=== PATIENT | female | born 1985 | race Caucasian/White ===

== ENCOUNTER 2018-01-23 18:33 | Emergency (ER) | payer BC ==
[2018-01-23 19:15] VITALS: BP 158/62
[2018-01-23] MEDS: Cyclobenzaprine TAB* 10 MG PO ONE (19:49)
--- NOTE | 2018-01-23 19:50 | UC ---
Back Pain HPI - HPI Summary HPI Summary: 32 yo female with right low back pain radiating to right calf x 2 days hx sciatica taking motrin recent steroid shot right knee DM - History of Current Complaint Chief Complaint: UCBackPain Stated Complaint: BACK AND RIGHT LEG PAIN Time Seen by Provider: 01/23/18 19:35 Hx Obtained From: Patient Onset/Duration: Gradual Onset, Lasting Days Timing: Constant Severity Initially: Moderate Severity Currently: Moderate Pain Intensity: 6 Pain Scale Used: 0-10 Numeric Back Pain: Is Discrete @ - right lower back, Radiates To - right calf Character: Aching, Throbbing, Spasmodic Aggravating Factor(s): Movement, Lifting, Bending Alleviating Factor(s): Position Related History: Similar Episode Dx As - sciatica - Allergies/Home Medications Allergies/Adverse Reactions: Allergies Allergy/AdvReac Type Severity Reaction Status Date / Time No Known Allergies Allergy Verified 01/23/18 19:15 Home Medications: Home Medications Aspirin Low Dose CHEW TAB* [Aspirin Low Dose TAB*] 01/23/18 [History] Atorvastatin* [Lipitor 20 MG*] 01/23/18 [History] Lisinopril/HCTZ 10/12.5(NF) [Zestoretic 10/12.5(NF)] 01/23/18 [History] Omeprazole CAP* [Prilosec CAP* 20 MG] 01/23/18 [History] metFORMIN* [Glucophage 1000 MG TAB *] 01/23/18 [History] PMH/Surg Hx/FS Hx/Imm Hx Previously Healthy: Yes Endocrine History: Diabetes Cardiovascular History: Hypertension - Surgical History Surgical History: Yes Surgery Procedure, Year, and Place: hysterectomy, tubaligation, tubes in ears, tonsillectomy - Family History Known Family History: Positive: Hypertension, Diabetes - Social History Alcohol Use: Rare Substance Use Type: None Smoking Status (MU): Light Every Day Tobacco Smoker Review of Systems Constitutional: Negative Skin: Negative Eyes: Negative ENT: Negative Respiratory: Negative Cardiovascular: Negative Gastrointestinal: Negative Genitourinary: Negative Motor: Negative Neurovascular: Negative Musculoskeletal: Myalgia Neurological: Negative Psychological: Negative Is Patient Immunocompromised?: No All Other Systems Reviewed And Are Negative: Yes Physical Exam Triage Information Reviewed: Yes Appearance: Well-Appearing, No Pain Distress, Well-Nourished Vital Signs: Initial Vital Signs Temp 97.4 F 01/23/18 19:10 Pulse 88 01/23/18 19:10 Resp 18 01/23/18 19:10 BP 158/62 01/23/18 19:10 Pulse Ox 99 01/23/18 19:10 Vital Signs Reviewed: Yes Eyes: Positive: Conjunctiva Clear ENT: Positive: Hearing grossly normal, Uvula midline. Negative: Nasal congestion, Nasal drainage, Trismus, Muffled voice, Hoarse voice Neck: Positive: Supple, Nontender Respiratory: Positive: Lungs clear, Normal breath sounds, No respiratory distress, No accessory muscle use Cardiovascular: Positive: RRR, No Murmur Musculoskeletal: Positive: ROM Intact, No Edema Neurological: Positive: Alert Psychological Exam: Normal Skin Exam: Normal Back Pain Course/Dx - Differential Dx/Diagnosis Provider Diagnoses: acute sciatica Discharge - Discharge Plan Condition: Stable Disposition: HOME Prescriptions: Cyclobenzaprine TAB* [Flexeril TAB*] 10 mg PO TID PRN #21 tab PRN Reason: Spasms Patient Education Materials: Sciatica (ED) Forms: *Work Release Referrals: DEEPTHI Bear [Primary Care Provider] - 5 Days (recheck in 5-10 days) Additional Instructions: don't take muscle relaxer and drive or work Images Front/Back of Body, Lg ([place]): 1 - pain here, (+) SLR 2 - radiates here
== END 2018-01-23 19:51 | disposition home or self-care (01) ==
LOC: UCCORT 18:33
DX: M54.30 Sciatica, unspecified side (principal); E11.9 Type 2 diabetes mellitus without complications; Z79.84 Long term (current) use of oral hypoglycemic drugs; I10 Essential (primary) hypertension; F17.210 Nicotine dependence, cigarettes, uncomplicated
CPT/HCPCS: 99212; A9270-GY; G0463

== ENCOUNTER 2018-03-27 16:11 | Emergency (ER) | payer BC ==
[2018-03-27 17:11] VITALS: BP 146/93
--- NOTE | 2018-03-27 17:17 | ED ---
Throat Pain/Nasal Congestion - HPI Summary HPI Summary: 32 yrold female with the complaint of sinus pressure, post nasal drip, bilateral ear pressure. Onset about a week ago, and she feels she has a sinus infection - History of Current Complaint Chief Complaint: UCGeneralIllness Time Seen by Provider: 03/27/18 17:07 - Allergies/Home Medications Allergies/Adverse Reactions: Allergies Allergy/AdvReac Type Severity Reaction Status Date / Time No Known Allergies Allergy Verified 03/27/18 17:08 PMH/Surg Hx/FS Hx/Imm Hx Endocrine/Hematology History: Reports: Hx Diabetes - type 2 Cardiovascular History: Reports: Hx Hypertension - Surgical History Surgery Procedure, Year, and Place: hysterectomy, tubaligation, tubes in ears, tonsillectomy Infectious Disease History: No Infectious Disease History: Denies: Traveled Outside the [place] in Last 30 Days - Family History Known Family History: Positive: Hypertension, Diabetes - Social History Alcohol Use: Rare Substance Use Type: Reports: None Smoking Status (MU): Light Every Day Tobacco Smoker Type: Cigarettes Review of Systems Constitutional: Negative Positive: Ear Ache, Nasal Discharge, Other - sinus pressure All Other Systems Reviewed And Are Negative: Yes Physical Exam Triage Information Reviewed: Yes Vital Signs On Initial Exam: Initial Vitals Temp Pulse Resp BP Pulse Ox 98.4 F 75 20 146/93 98 03/27/18 17:02 03/27/18 17:02 03/27/18 17:02 03/27/18 17:02 03/27/18 17:02 Vital Signs Reviewed: Yes Appearance: Positive: Well-Appearing, No Pain Distress Skin: Positive: Warm, Skin Color Reflects Adequate Perfusion Head/Face: Positive: Normal Head/Face Inspection Eyes: Positive: EOMI ENT: Positive: Pharynx normal, TMs normal, Sinus tenderness Neck: Positive: Nontender Respiratory/Lung Sounds: Positive: Clear to Auscultation, Breath Sounds Present Cardiovascular: Positive: RRR. Negative: Murmur Abdomen Description: Positive: Nontender Musculoskeletal: Positive: Strength/ROM Intact Neurological: Positive: Sensory/Motor Intact, Alert, Oriented to Person Place, Time, CN Intact II-III Psychiatric: Positive: Normal - Tawana Coma Scale Best Eye Response: 4 - Spontaneous Best Motor Response: 6 - Obeys Commands Best Verbal Response: 5 - Oriented Coma Scale Total: 15 Diagnostics - Vital Signs Vital Signs Temp Pulse Resp BP Pulse Ox 03/27/18 17:02 98.4 F 75 20 146/93 98 - Laboratory Lab Statement: Any lab studies that have been ordered have been reviewed, and results considered in the medical decision making process. EENT Course/Dx - Course Course Of Treatment: 32 yr old with sinusitis. Rx Augmentin - Diagnoses Provider Diagnoses: Sinusitis Discharge - Sign-Out/Discharge Documenting (check all that apply): Discharge/Admit/Transfer - Discharge Plan Condition: Good Disposition: HOME Prescriptions: Amoxicillin/Clavulanate TAB* [Augmentin TAB 875*] 875 mg PO BID #20 tab Patient Education Materials: Hypertension (ED), Sinusitis (ED) Referrals: DEEPTHI Bear [Primary Care Provider] - - Billing Disposition and Condition Condition: GOOD Disposition: HOME
== END 2018-03-27 17:38 | disposition home or self-care (01) ==
LOC: UCCORT 16:11
DX: J32.9 Chronic sinusitis, unspecified (principal); F17.210 Nicotine dependence, cigarettes, uncomplicated
CPT/HCPCS: 99212; G0463

== ENCOUNTER 2018-05-21 18:20 | Emergency (ER) | payer BC ==
[2018-05-21 18:35] VITALS: BP 141/74
--- NOTE | 2018-05-21 19:09 | UC ---
UC Dental HPI - HPI Summary HPI Summary: Pt c/o left cheek swelling and tenderness s/p having left upper tooth extraction 2 days ago. - History of Current Complaint Hx Obtained From: Patient Hx Last Menstrual Period: n/a ?: No Onset/Duration: Gradual Onset, Lasting Days Severity: Moderate Pain Intensity: 6 Aggravating Factor(s): Chewing Related History: Previous Dental Care on Same Tooth, Swelling <Phyllis Francois NP - Last Filed: 05/21/18 19:12> <Robinson Skaggs - Last Filed: 05/21/18 20:44> - History of Current Complaint Chief Complaint: UCDentalProblem Stated Complaint: DENTAL COMPLAINT Time Seen by Provider: 05/21/18 18:54 - Allergies/Home Medications Allergies/Adverse Reactions: Allergies Allergy/AdvReac Type Severity Reaction Status Date / Time No Known Allergies Allergy Verified 05/21/18 18:33 Home Medications: Home Medications Ibuprofen TAB* [Motrin TAB* 800 MG] 800 mg PO Q6H 05/21/18 [History Confirmed ] PMH/Surg Hx/FS Hx/Imm Hx Previously Healthy: Yes - Surgical History Surgical History: Yes Surgery Procedure, Year, and Place: hysterectomy, tubaligation, tubes in ears, tonsillectomy - Family History Known Family History: Positive: Hypertension, Diabetes - Social History Occupation: Employed Full-time Lives: With Family Alcohol Use: Rare Substance Use Type: None Smoking Status (MU): Light Every Day Tobacco Smoker Type: Cigarettes Amount Used/How Often: 1/2 ppd Have You Smoked in the Last Year: Yes <Phyllis Francois NP - Last Filed: 05/21/18 19:12> Review of Systems Constitutional: Fever, Chills Skin: Negative Eyes: Negative ENT: Dental Pain Respiratory: Negative Cardiovascular: Negative Gastrointestinal: Negative Genitourinary: Negative Motor: Negative Neurovascular: Negative Musculoskeletal: Negative Neurological: Negative Psychological: Negative Is Patient Immunocompromised?: No All Other Systems Reviewed And Are Negative: Yes <Phyllis Francois NP - Last Filed: 05/21/18 19:12> Physical Exam Triage Information Reviewed: Yes Appearance: Ill-Appearing, Pain Distress Vital Signs: Initial Vital Signs Temp 97.2 F 05/21/18 18:29 Pulse 75 05/21/18 18:29 Resp 18 05/21/18 18:29 BP 141/74 05/21/18 18:29 Pulse Ox 100 05/21/18 18:29 Vital Signs Reviewed: Yes Eye Exam: Normal Dental: Positive: Abscess @ - left upper gum. left cheek swelling, left upper tooth extraction clot intact, Neck exam: Normal Respiratory Exam: Normal Respiratory: Positive: No respiratory distress Musculoskeletal Exam: Normal Neurological Exam: Normal Psychological Exam: Normal Skin Exam: Normal <Phyllis Francois NP - Last Filed: 05/21/18 19:12> Vital Signs: Initial Vital Signs Temp 97.2 F 05/21/18 18:29 Pulse 75 05/21/18 18:29 Resp 18 05/21/18 18:29 BP 141/74 05/21/18 18:29 Pulse Ox 100 05/21/18 18:29 <Robinson Skaggs - Last Filed: 05/21/18 20:44> Dental Complaint Course/Dx - Differential Dx/Diagnosis Differential Diagnosis/Dx: Dental Abscess, Post Extraction Pain Provider Diagnoses: dental abscess. post extraction pain <Phyllis Francois NP Last Filed: 05/21/18 19:12> Discharge - Sign-Out/Discharge Documenting (check all that apply): Discharge/Admit/Transfer - Billing Disposition and Condition Condition: STABLE Disposition: Home <Phyllis Francois NP Last Filed: 05/21/18 19:12> - Billing Disposition and Condition Condition: STABLE Disposition: Home <Robinson Skaggs - Last Filed: 05/21/18 20:44> - Discharge Plan Condition: Stable Disposition: HOME Prescriptions: Clindamycin Cap(NF) [Clindamycin Cap 300 mg Cap(NF)] 300 mg PO Q8H #30 cap Patient Education Materials: Dental Abscess (ED) Referrals: Dorothy Pleitez MD [Primary Care Provider] - Additional Instructions: Please keep your appointment with your dental care provider as scheduled or earlier if possible. Per institutional requirements, I have reviewed the chart, however, I was not consulted specifically or made aware of this patient by the above midlevel provider. I did not personally evaluate, interact with , or disposition this patient.
== END 2018-05-21 19:15 | disposition home or self-care (01) ==
LOC: UCCORT 18:20
DX: K04.7 Periapical abscess without sinus (principal); G89.18 Other acute postprocedural pain
CPT/HCPCS: 99212; G0463

== ENCOUNTER 2018-09-02 15:30 | Emergency (ER) | payer BC ==
[2018-09-02 16:04] VITALS: BP 133/76
--- NOTE | 2018-09-02 16:04 | UC ---
Throat Pain/Nasal Yoel HPI - HPI Summary HPI Summary: 33 year old female here with a complaint of runny nose and congestion for 2 weeks. She also has some sore throat. Last couple of days she is developed a cough and she has some splinting pain bilateral lower lung yu. No fevers. She is smoker. She has been taking NyQuil which helps some but she is continuing to get worse overall. - History of Current Complaint Stated Complaint: COUGH,BILATERAL EAR COMPLAINT Time Seen by Provider: 09/02/18 15:53 Hx Last Menstrual Period: n/a - Allergies/Home Medications Allergies/Adverse Reactions: Allergies Allergy/AdvReac Type Severity Reaction Status Date / Time No Known Allergies Allergy Verified 09/02/18 15:56 PMH/Surg Hx/FS Hx/Imm Hx Cardiovascular History: Hypertension - Surgical History Surgical History: Yes Surgery Procedure, Year, and Place: hysterectomy, tubaligation, tubes in ears, tonsillectomy - Family History Known Family History: Positive: Hypertension, Diabetes - Social History Alcohol Use: Rare Substance Use Type: None Smoking Status (MU): Light Every Day Tobacco Smoker Type: Cigarettes Amount Used/How Often: 1/2 ppd Have You Smoked in the Last Year: Yes Review of Systems Constitutional: Negative Skin: Negative Eyes: Negative ENT: Ear Ache, Nasal Discharge, Sinus Congestion Respiratory: Cough, Other - see hpi Cardiovascular: Other - see hpi Gastrointestinal: Negative Motor: Negative Neurovascular: Negative Musculoskeletal: Negative Neurological: Negative Psychological: Negative Is Patient Immunocompromised?: No All Other Systems Reviewed And Are Negative: Yes Physical Exam Triage Information Reviewed: Yes Appearance: Well-Appearing, No Pain Distress, Well-Nourished Vital Signs Reviewed: Yes Eye Exam: Normal Eyes: Positive: Conjunctiva Clear ENT: Positive: Pharyngeal erythema, Nasal congestion, Nasal drainage, TMs normal Neck exam: Normal Neck: Positive: Supple Respiratory: Positive: Lungs clear, Normal breath sounds, No respiratory distress Cardiovascular Exam: Normal Cardiovascular: Positive: RRR Musculoskeletal Exam: Normal Musculoskeletal: Positive: Strength Intact, ROM Intact Neurological Exam: Normal Neurological: Positive: Alert Psychological Exam: Normal Psychological: Positive: Normal Response To Family, Age Appropriate Behavior Skin Exam: Normal Throat Pain/Nasal Course/Dx - Course Course Of Treatment: Sx > 10 days - Differential Dx/Diagnosis Provider Diagnoses: bronchitis. sinusitis Discharge - Sign-Out/Discharge Documenting (check all that apply): Patient Departure All imaging exams completed and their final reports reviewed: No Studies - Discharge Plan Condition: Stable Disposition: HOME Prescriptions: Azithromyxin LENIN (NF) [Z-Lenin (Zithromax) 250 mg tabs #6] 2 tab PO .TODAY, THEN 1 DAILY #6 tab Patient Education Materials: Acute Bronchitis (ED), Sinusitis (ED) Referrals: Dorothy Pleitez MD [Primary Care Provider] - Additional Instructions: FOLLOW UP WITH YOUR DOCTOR IF NOT COMPLETELY IMPROVED. GET RECHECKED FOR ANY WORSENING OF YOUR CONDITION OR QUESTIONS OR CONCERNS. - Billing Disposition and Condition Condition: STABLE Disposition: Home
== END 2018-09-02 16:22 | disposition home or self-care (01) ==
LOC: UCCORT 15:30
DX: J40 Bronchitis, not specified as acute or chronic (principal); J32.9 Chronic sinusitis, unspecified; F17.210 Nicotine dependence, cigarettes, uncomplicated; I10 Essential (primary) hypertension
CPT/HCPCS: 99212; G0463

== ENCOUNTER 2019-02-02 16:40 | Emergency (ER) | payer BC ==
[2019-02-02 17:20] VITALS: BP 118/61
--- NOTE | 2019-02-02 17:26 | UC ---
Respiratory Complaint HPI - HPI Summary HPI Summary: 33 yo female with cough/sinus pressure and pain as well as left otalgia x 5-6 days feverish at onset no CP or sob - History of Current Complaint Chief Complaint: UCRespiratory Stated Complaint: EAR PAIN Time Seen by Provider: 02/02/19 17:17 Hx Obtained From: Patient Hx Last Menstrual Period: n/a Onset/Duration: Gradual Onset, Lasting Days Timing: Constant Severity Initially: Mild Severity Currently: Moderate Pain Intensity: 7 Pain Scale Used: 0-10 Numeric Character: Cough: Productive Aggravating Factors: Nothing Alleviating Factors: Nothing Associated Signs And Symptoms: Positive: Fever, Chills, Nasal Congestion, Sinus Discomfort - Allergies/Home Medications Allergies/Adverse Reactions: Allergies Allergy/AdvReac Type Severity Reaction Status Date / Time No Known Allergies Allergy Verified 02/02/19 17:16 PMH/Surg Hx/FS Hx/Imm Hx Previously Healthy: Yes Endocrine History: Diabetes - not on meds Cardiovascular History: Hypertension - not on meds Respiratory History: Bronchitis - Surgical History Surgical History: Yes Surgery Procedure, Year, and Place: hysterectomy, tubaligation, tubes in ears, tonsillectomy - Family History Known Family History: Positive: Hypertension, Diabetes - Social History Alcohol Use: None Substance Use Type: None Smoking Status (MU): Light Every Day Tobacco Smoker Type: Cigarettes Amount Used/How Often: 1/2 ppd Have You Smoked in the Last Year: Yes Cessation Counseling: Patient Advised to Stop Review of Systems All Other Systems Reviewed And Are Negative: Yes Constitutional: Positive: Fever, Chills Skin: Positive: Negative Eyes: Positive: Negative ENT: Positive: Ear Ache, Nasal Discharge, Sinus Congestion, Sinus Pain/ Tenderness Respiratory: Positive: Cough Cardiovascular: Positive: Negative Gastrointestinal: Positive: Negative Genitourinary: Positive: Negative Motor: Positive: Negative Neurovascular: Positive: Negative Musculoskeletal: Positive: Negative Neurological: Positive: Negative Psychological: Positive: Negative Physical Exam Triage Information Reviewed: Yes Appearance: Well-Appearing, No Pain Distress, Well-Nourished Vital Signs: Initial Vital Signs Temp 97.3 F 02/02/19 17:16 Pulse 69 02/02/19 17:16 Resp 16 02/02/19 17:16 BP 118/61 02/02/19 17:16 Pulse Ox 98 02/02/19 17:16 Vital Signs Reviewed: Yes Eyes: Positive: Conjunctiva Clear ENT: Positive: Hearing grossly normal. Negative: Nasal congestion, Nasal drainage, Trismus, Muffled voice, Hoarse voice Neck: Positive: Supple, Nontender Respiratory: Positive: No respiratory distress, No accessory muscle use, Rhonchi Cardiovascular: Positive: RRR, No Murmur Abdomen Description: Positive: Nontender, No Organomegaly, Soft Bowel Sounds: Positive: Present Musculoskeletal: Positive: ROM Intact, No Edema Neurological: Positive: Alert, Muscle Tone Normal Psychological Exam: Normal Skin Exam: Normal Respiratory Course/Dx - Differential Dx/Diagnosis Provider Diagnosis: Left serous otitis media, Sinusitis, Bronchitis, Smoker Discharge - Sign-Out/Discharge Documenting (check all that apply): Patient Departure All imaging exams completed and their final reports reviewed: No Studies - Discharge Plan Condition: Stable Disposition: HOME Prescriptions: Amoxicillin/Clavulanate TAB* [Augmentin TAB 875*] 875 mg PO BID #14 tab Fluconazole 150 MG (NF) [Diflucan 150 mg (NF)] 150 mg PO ONCE #1 tab Fluticasone NASAL SPRAY 50MCG* [Flonase NASAL SPRAY 50MCG*] 2 spray BOTH NARES BID #1 btl Patient Education Materials: Sinusitis (ED), Acute Bronchitis (ED) Referrals: Dorothy Pleitez MD [Primary Care Provider] - 1 Week - Billing Disposition and Condition Condition: STABLE Disposition: Home
== END 2019-02-02 17:32 | disposition home or self-care (01) ==
LOC: UCCORT 16:40
DX: J40 Bronchitis, not specified as acute or chronic (principal); J32.9 Chronic sinusitis, unspecified; H65.92 Unspecified nonsuppurative otitis media, left ear; E11.9 Type 2 diabetes mellitus without complications; I10 Essential (primary) hypertension; F17.210 Nicotine dependence, cigarettes, uncomplicated
CPT/HCPCS: 99212; G0463

== ENCOUNTER 2019-09-08 19:23 | Emergency (ER) | payer BC ==
--- NOTE | 2019-09-08 19:43 | UC ---
Throat Pain/Nasal Yoel HPI - HPI Summary HPI Summary: 34 yo smoker with one week hx of cough, ear pain, headache and malaise. No fever. Occasional shortness of breath, has used her 's nebulizer x 1 several days ago with some relief of wheeze. Wheeze has been episodic. - History of Current Complaint Stated Complaint: SINUS,COUGH Time Seen by Provider: 09/08/19 19:42 Hx Obtained From: Patient Hx Last Menstrual Period: n/a ?: No Onset/Duration: Gradual Onset, Lasting Days - 7 Severity: Moderate Cough: Productive Associated Signs & Symptoms: Positive: Wheezing, Sinus Discomfort, Nasal Discharge Related History: Smoking - Epiglottits Risk Factors Epiglottis Risk Factors: Negative - Allergies/Home Medications Allergies/Adverse Reactions: Allergies Allergy/AdvReac Type Severity Reaction Status Date / Time No Known Allergies Allergy Verified 09/08/19 19:40 PMH/Surg Hx/FS Hx/Imm Hx - Additional Past Medical History Additional PMH: Obesity - Surgical History Surgical History: Yes Surgery Procedure, Year, and Place: hysterectomy, tubaligation, tubes in ears, tonsillectomy - Family History Known Family History: Positive: Cardiac Disease, Hypertension, Diabetes, Other - mother has CA lung, CA thyroid, CA pancreas - Social History Occupation: Employed Full-time Lives: With Family Alcohol Use: None Substance Use Type: None Smoking Status (MU): Light Every Day Tobacco Smoker Type: Cigarettes Amount Used/How Often: 1/2 ppd Have You Smoked in the Last Year: Yes Review of Systems All Other Systems Reviewed And Are Negative: Yes Constitutional: Positive: Fatigue Skin: Positive: Negative Eyes: Positive: Negative ENT: Positive: Sore Throat, Ear Ache, Nasal Discharge, Sinus Congestion Respiratory: Positive: Shortness Of Breath - off and on, Cough Gastrointestinal: Positive: Negative Genitourinary: Positive: Negative Motor: Positive: Negative, Decreased ROM Musculoskeletal: Positive: Negative Neurological: Positive: Negative Psychological: Positive: Negative Is Patient Immunocompromised?: No Physical Exam Triage Information Reviewed: Yes Appearance: No Pain Distress, Ill-Appearing, Obese Vital Signs Reviewed: Yes ENT: Positive: Pharyngeal erythema - past tonsillectomy, TM dull - retracted on left, TM red - right erythema and decreased light reflex. Neck: Positive: Supple, No Lymphadenopathy, Tenderness @ - right sternomastoid area, no nodes felt. Respiratory: Positive: Decreased breath sounds, Rhonchi - scattered. Negative: Respiratory distress Cardiovascular: Positive: RRR, No Murmur Musculoskeletal Exam: Normal Neurological Exam: Normal Psychological Exam: Normal Skin Exam: Normal Throat Pain/Nasal Course/Dx - Course Course Of Treatment: augmentin for otitis/sinusitis, rx for albuterol for prn use for wheeze. - Differential Dx/Diagnosis Differential Diagnosis/HQI/PQRI: Otitis Media, Pharyngitis, Sinusitis, URI Provider Diagnosis: Right otitis media Discharge ED - Sign-Out/Discharge Documenting (check all that apply): Patient Departure All imaging exams completed and their final reports reviewed: No Studies - Discharge Plan Condition: Stable Disposition: HOME Prescriptions: Albuterol HFA INHALER* [Ventolin HFA Inhaler*] 2 puff INH Q6H PRN #1 mdi PRN Reason: Wheezing Amoxicillin/Clavulanate TAB* [Augmentin TAB 875*] 875 mg PO BID #14 tab Patient Education Materials: Ear Infection (ED) Referrals: No Primary Care Phys,NOPCP [Primary Care Provider] - Additional Instructions: Take full course of augmentin for treatment of ear infection and sinus infection. You have a prescription of albuterol to use for wheezing as needed. I encourage you to consider smoke stopping. - Billing Disposition and Condition Condition: STABLE Disposition: Home
[2019-09-08 19:44] VITALS: BP 139/63
[2019-09-08] MEDS ORDERED: Amoxicillin/Clavulanate TAB* 875 MG PO ONE (19:59)
== END 2019-09-08 20:07 | disposition home or self-care (01) ==
LOC: UCCORT 19:23
DX: H66.91 Otitis media, unspecified, right ear (principal); R05 Cough; R51 Headache; R53.81 Other malaise; R06.02 Shortness of breath; J02.9 Acute pharyngitis, unspecified; R09.81 Nasal congestion; E66.9 Obesity, unspecified; F17.210 Nicotine dependence, cigarettes, uncomplicated
CPT/HCPCS: 99212; A9270-GY; G0463